=== PATIENT | female | born 1955 | race Caucasian/White ===

== ENCOUNTER 2017-09-01 19:23 | Emergency (ER) | payer SELFPAY ==
[~2017-09-01] VITALS: Ht 170.2 cm; Wt 100.0 kg
[2017-09-01] MEDS ORDERED: CODEINE/GUAIFEN1 SOL PO (20:01)
[2017-09-01 20:05] VITALS: BP 147/92
== END 2017-09-01 20:05 | disposition home or self-care (01) | DRG 203 ==
LOC: ED 19:23
DX: J40 Bronchitis, not specified as acute or chronic (principal); F32.9 Major depressive disorder, single episode, unspecified; I10 Essential (primary) hypertension

== ENCOUNTER 2017-09-04 16:02 | Emergency (ER) | payer SELFPAY ==
[~2017-09-04] VITALS: Ht 170.2 cm; Wt 100.0 kg
[~2017-09-04 16:02] MED LIST: CODEINE/GUAIFEN1 SOL PO
[2017-09-04] MEDS ORDERED: BENADRYL 50MG C50 MG PO (17:30)
[2017-09-04] MEDS ORDERED: PATANOL0.1 % OD (17:30)
[2017-09-04] MEDS ORDERED: GENTAMICIN15 ML/BTL OD (17:30)
[2017-09-04 17:44] VITALS: BP 151/94
== END 2017-09-04 17:44 | disposition home or self-care (01) | DRG 916 ==
LOC: ED 16:02
DX: T78.3XXA Angioneurotic edema, initial encounter (principal); F32.9 Major depressive disorder, single episode, unspecified; I10 Essential (primary) hypertension

== ENCOUNTER → 2018-07-04 | Outpatient (REF) | payer OTHER ==
[~2018-07-04] MED LIST changes: +BENADRYL 50MG C50 MG PO; +GENTAMICIN15 ML/BTL OD; +PATANOL0.1 % OD
== END | disposition home or self-care (01) | DRG 305 ==
LOC: LAB 07:16
DX: I10 Essential (primary) hypertension (principal); R53.83 Other fatigue; Z13.1 Encounter for screening for diabetes mellitus; E78.5 Hyperlipidemia, unspecified; E03.9 Hypothyroidism, unspecified; M79.10 Myalgia, unspecified site; M25.50 Pain in unspecified joint

== ENCOUNTER 2020-07-14 18:53 | Emergency (ER) | payer OTHER ==
[~2020-07-14] VITALS: Ht 170.2 cm; Wt 109.0 kg
[2020-07-14 20:30] VITALS: BP 118/65
[2020-07-14] MEDS ORDERED: NAPROXEN500 MG PO (20:56)
== END 2020-07-14 21:07 | disposition home or self-care (01) | DRG 552 ==
LOC: ED 18:53
DX: S13.9XXA Sprain of joints and ligaments of unspecified parts of neck, initial encounter (principal); S50.312A Abrasion of left elbow, initial encounter; S80.02XA Contusion of left knee, initial encounter; S80.01XA Contusion of right knee, initial encounter; S50.02XA Contusion of left elbow, initial encounter; I10 Essential (primary) hypertension; F32.9 Major depressive disorder, single episode, unspecified; V03.90XA Pedestrian on foot injured in collision with car, pick-up truck or van, unspecified whether traffic or nontraffic accident, initial encounter

== ENCOUNTER 2022-02-15 11:20 | Emergency (ER) | payer BC, MEDICARE ==
[~2022-02-15] VITALS: Ht 170.2 cm; Wt 103.0 kg
[~2022-02-15 11:20] MED LIST changes: +NAPROXEN500 MG PO
[2022-02-15 14:51] VITALS: BP 145/87
[2022-02-15 15:00] VITALS: BP 127/88
[2022-02-15 15:15] VITALS: BP 128/77
== END 2022-02-15 15:24 | disposition home or self-care (01) | DRG 563 ==
LOC: ED 11:20
DX: S92.535A Nondisplaced fracture of distal phalanx of left lesser toe(s), initial encounter for closed fracture (principal); M25.512 Pain in left shoulder; X58.XXXA Exposure to other specified factors, initial encounter

== ENCOUNTER 2022-05-24 15:41 | Observation (INO) | payer BC ==
[~2022-05-24] VITALS: Ht 170.2 cm; Wt 112.0 kg
[2022-05-24] VITALS (13 sets, daily range): BP systolic 101–162; BP diastolic 54–77
[2022-05-24 16:18] LABS: BASO% 0.5 % (0-3); EOS% 2.7 % (0-8); HEMATOCRIT 42.6 % (37.0-47.0); HEMOGLOBIN 14.1 g/dl (12.0-16.0); IMMATURE GRANULOCYTES 0.2 % (0.0-5.0); LYMPH% 33.1 % (15-41); MEAN CELL VOLUME 89.7 fL CALC (80.0-100.0); MEAN CORPUSCULAR HGB 29.7 pG CALC (26.0-32.0); MEAN CORPUSCULAR HGB CONC 33.1 g/dL CAL (32.0-36.0); MONO% 7.6 % (2-13); NEUT# 5.55 thou/uL (2.00-7.15); NEUT% 55.9 % (42-76); RED BLOOD COUNT 4.75 mill/uL (4.20-5.60)
[2022-05-24 16:37] LABS: ALBUMIN 4.5 g/dL (3.2-5.0); ALKALINE PHOSPHATASE 36 u/l (38-126); ANION GAP 8 (6-22 (CALC)); BILIRUBIN, TOTAL 0.3 mg/dL (0.0-1.4); BUN 17 mg/dL (8-23); BUN/CREATININE RATIO 18 (12-20 (CALC)); CARBON DIOXIDE 31 mmol/l (22-30); CHLORIDE 102 mmol/l (95-108); CREATININE 0.9 mg/dL (0.5-1.0); GFR FOR AFR.AMER. > 60 ML/MIN (>=60 (CALC)); GFR OTHER RACES > 60 ML/MIN (>=60 (CALC)); POTASSIUM 4.1 mmol/l (3.5-5.1); SGOT/AST 24 u/l (9-36); SODIUM 138 mmol/l (137-146); TOTAL PROTEIN 7.6 g/dL (6.3-8.2)
[2022-05-25 04:28] VITALS: BP 136/72
[2022-05-25 06:28] LABS: MAGNESIUM 2.1 mg/dL (1.6-2.3)
[2022-05-25 06:55] VITALS: BP 104/54
[2022-05-25] MEDS ORDERED: LISINOPRIL20 M1 PO (09:40)
[2022-05-25] MEDS ORDERED: ASPIRIN ADULT L81 M2 PO (09:40)
[2022-05-25] MEDS ORDERED: SERTRALINE25 MG PO (09:40)
[2022-05-25] MEDS ORDERED: MELOXICAM7.5 MG PO (09:41)
== END 2022-05-25 10:33 | disposition home or self-care (01) | DRG 313 ==
LOC: ED 15:41 → ED-I 17:00 → ED 17:51 → MS2 17:52
PROVIDERS: Family Medicine; ADMIT Internal Medicine; ATTEND Internal Medicine
DX: R07.9 Chest pain, unspecified (principal); I10 Essential (primary) hypertension; F32.A Depression, unspecified; Z82.49 Family history of ischemic heart disease and other diseases of the circulatory system
CPT/HCPCS: G0378; J1650

== ENCOUNTER 2022-09-02 10:16 | Emergency (ER) | payer BC, MEDICARE ==
[~2022-09-02] VITALS: Ht 170.2 cm; Wt 90.0 kg
[~2022-09-02 10:16] MED LIST changes: +ASPIRIN ADULT L81 M2 PO; +LISINOPRIL20 M1 PO; +MELOXICAM7.5 MG PO; +SERTRALINE25 MG PO
[2022-09-02 10:24] VITALS: BP 143/83
[2022-09-02 11:01] VITALS: BP 132/77
[2022-09-02 11:42] VITALS: BP 132/77
== END 2022-09-02 11:43 | disposition home or self-care (01) | DRG 153 ==
LOC: ED 10:16
DX: J06.9 Acute upper respiratory infection, unspecified (principal); J04.0 Acute laryngitis; I10 Essential (primary) hypertension; F32.A Depression, unspecified; Z20.822 Contact with and (suspected) exposure to COVID-19

== ENCOUNTER 2022-12-01 09:43 | Emergency (ER) | payer OTHER, BC, MEDICARE ==
[2022-12-01] VITALS (10 sets, daily range): BP systolic 114–160; BP diastolic 64–82
[~2022-12-01] VITALS: Ht 170.2 cm; Wt 103.0 kg
== END 2022-12-01 12:50 | disposition home or self-care (01) | DRG 605 ==
LOC: ED 09:43
DX: S51.011A Laceration without foreign body of right elbow, initial encounter (principal); M79.641 Pain in right hand; M54.2 Cervicalgia; I10 Essential (primary) hypertension; F32.A Depression, unspecified; W01.0XXA Fall on same level from slipping, tripping and stumbling without subsequent striking against object, initial encounter; Y92.89 Other specified places as the place of occurrence of the external cause; Y99.0 Civilian activity done for income or pay